=== PATIENT | male | born 1935 | race African-American/Black ===

== ENCOUNTER 2020-09-19 12:19 | Emergency (ER) | payer OTHER ==
[~2020-09-19] VITALS: Ht 172.7 cm; Wt 108.9 kg
[~2020-09-19 12:19] MED LIST: ACETAMINOPHEN-1 EAC1 PO; AFEDITAB CR60 MG PO; ALLOPURINOL 10100 M2; CARDURA2 MG PO; CITRATE OF MAG296 ML PO; CLARITIN10 MG PO; COLACE 100 MG100 MG PO; FERRO-TIME325 MG PO; FIBERCON625 M1 PO; FINASTERIDE5 MG PO; FLONASE 0.05%50 MCG NASAL; HYDROCHLOROTH12.5 MG PO; LAMISIL250 MG PO; LEVOTHROID50 MCG PO; LO-DOSE ASPIRIN81 M1 PO; MIRALAX17 GM PO; NIFEDIPINE ER60 M1 PO; NORCO 5-325 TA1 EACH PO; PERCOCET 5-3251 EACH PO; PRINIVIL20 MG PO; PROBIOTIC1 EAC1 PO; PROTONIX40 M2 PO; SIMVASTATIN20 MG PO; TRAMADOL 50 MG50 MG PO; VALIUM2 MG PO
[2020-09-19] MEDS ORDERED: ALLOPURINOL 10100 M2 PO (12:28)
[2020-09-19] MEDS ORDERED: MINOCYCLINE 5050 M1 PO (12:28)
[2020-09-19] MEDS ORDERED: CARVEDILOL12.5 MG PO (12:29)
[2020-09-19] MEDS ORDERED: LISINOPRIL10 MG PO (12:30)
[2020-09-19 13:59] VITALS: BP 132/75
== END 2020-09-19 13:59 | disposition home or self-care (01) ==
LOC: ER 12:19
DX: I10 Essential (primary) hypertension (principal); Z79.899 Other long term (current) drug therapy

== ENCOUNTER 2021-01-29 12:46 | Emergency (ER) | payer OTHER ==
[~2021-01-29] VITALS: Ht 172.7 cm; Wt 106.6 kg
[~2021-01-29 12:46] MED LIST changes: +ALLOPURINOL 10100 M2 PO; +CARVEDILOL12.5 MG PO; +LISINOPRIL10 MG PO; +MINOCYCLINE 5050 M1 PO
[2021-01-29 15:31] VITALS: BP 186/87
[2021-01-29] MEDS ORDERED: MEDROLDOSEPACK PO (15:31)
[2021-01-29] MEDS ORDERED: ZANAFLEX4 MG PO (15:31)
== END 2021-01-29 15:31 | disposition home or self-care (01) ==
LOC: ER 12:46
DX: M54.16 Radiculopathy, lumbar region (principal); I10 Essential (primary) hypertension; Z79.899 Other long term (current) drug therapy

== ENCOUNTER 2021-03-16 11:00 | Emergency (ER) | payer OTHER ==
[~2021-03-16] VITALS: Ht 167.6 cm; Wt 108.9 kg
[~2021-03-16 11:00] MED LIST changes: +MEDROLDOSEPACK PO; +ZANAFLEX4 MG PO
[2021-03-16 11:42] LABS: ABSOLUTE NEUTROPHILS 7.1 thou/uL (1.4-8.2); BASOPHILS 1.3 % (0.0-2.0); EOSINOPHILS 4.9 % (0.0-3.0); HEMATOCRIT 33.7 % (42.0-52.0); LYMPHOCYTES 13.5 % (24.0-44.0); MCHC 32.7 g/dL (28.0-37.0); MCV 94.9 fL (80.0-100.0); MONOCYTES 12.1 % (1.0-8.0); PLATELET COUNT 149 thou/uL (150-400); POLYS 68.2 % (36.0-66.0); RBC 3.55 mil/uL (4.50-6.00); RDW 14.9 % (10.5-14.5); WBC 10.4 thou/uL (4.0-11.0)
[2021-03-16 11:44] LABS: CALCIUM 8.1 mg/dL (8.5-10.1); CREATININE 2.3 mg/dL (0.7-1.3)
[2021-03-16 11:50] LABS: ALBUMIN 3.1 g/dL (3.4-5.0); POTASSIUM 4.7 mmol/L (3.5-5.1); TOTAL BILIRUBIN 0.3 mg/dL (0.2-1.0); TOTAL PROTEIN 7.8 g/dL (6.4-8.2)
[2021-03-16 12:48] LABS: URINE BILIRUBIN NEGATIVE (Negative); URINE BLOOD TRACE (Negative); URINE CLARITY CLEAR; URINE COLOR YELLOW; URINE GLUCOSE-RANDOM* NEGATIVE (Negative); URINE KETONES NEGATIVE (Negative); URINE LEUKOCYTES-REFLEX NEGATIVE (Negative); URINE NITRITE-REFLEX NEGATIVE (Negative); URINE PROTEIN (DIPSTICK) 2+ (Negative); URINE UROBILINOGEN 0.2 E.U./dl (0.2-1.0)
[2021-03-16 12:57] LABS: CASTS None Seen /LPF (None Seen); MUCUS 0-3 Light strn/LPF (None Seen); SQUAMOUS 0-3 Few /LPF (0-3)
[2021-03-16 12:58] LABS: BACTERIA-REFLEX 1-9 Few /HPF (None Seen); CRYSTALS None Seen /LPF (None Seen); URINE RBC 1-2 Rare /HPF (NONE SEEN); URINE WBC-REFLEX 0-5 Rare /HPF (0-5)
[2021-03-16] MEDS ORDERED: NORCO7.5 PO (13:51)
[2021-03-16 14:24] VITALS: BP 181/85
== END 2021-03-16 14:29 | disposition home or self-care (01) ==
LOC: ER 11:00
PROVIDERS: Emergency Medicine
DX: M54.32 Sciatica, left side (principal); M54.9 Dorsalgia, unspecified; R10.32 Left lower quadrant pain; I10 Essential (primary) hypertension; Z79.899 Other long term (current) drug therapy